=== PATIENT | female | born 1980 | race Caucasian/White ===

== ENCOUNTER 2019-06-22 10:37 | Emergency (ER) | payer OTHER ==
--- NOTE | 2019-06-22 10:53 | ED Physician Documentation ---
History of Present Illness - Stated complaint Stated Complaint: CHEST PAIN - Chief complaint Chief Complaint: Cardiac - History obtained from History obtained from: Patient - Additonal information Additional information: Patient is a 38-year-old female without significant past medical history presenting with 3 days of left-sided chest discomfort that radiates towards her shoulder and arm. Patient denies inciting incident, but notes pain worsens with movement or exercise. Patient does report mild shortness of breath component but no pleuritic chest pain, cough, or fever. Patient denies nausea, vomiting, urinary changes, stool changes. Patient also denies symptoms that are similar to GERD. Patient does believe there is a bit of an anxiety component given her family history of cardiac disease. Patient denies leg swelling or pain, recent travel, hormone use. No other improving or worsening factors noted. Review of Systems Constitutional: denies: Fever Cardiac: reports: Chest pain / pressure Respiratory: reports: Dyspnea. 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 - Present Medications Home Medications: Ambulatory Orders Medication Instructions Recorded Confirmed No Known Home Medications 06/22/19 06/22/19 - Allergies Allergies/Adverse Reactions: Allergies Allergy/AdvReac Type Severity Reaction Status Date / Time codeine AdvReac Nausea Verified 07/08/14 18:25 NSAIDS (Non-Steroidal AdvReac Unknown Verified 06/22/19 10:46 Anti-Inflamma - Social History Does the pt smoke?: Yes Smoking Status: Current every day smoker Does the pt drink ETOH?: No Does the pt have substance abuse?: No PD ED PE NORMAL - Vitals Vital signs reviewed: Yes - General General: Alert and oriented X 3, No acute distress, Well developed/nourished - HEENT HEENT: Atraumatic, Moist mucous membranes - Neck Neck: Supple, no meningeal sign - Cardiac Cardiac: RRR, No murmur, Other (No reproducible pain with palpation) - Respiratory Respiratory: No respiratory distress, Clear bilaterally - Abdomen Abdomen: Soft, Non tender, Non distended - Derm Derm: Normal color, Warm and dry, No rash - Extremities Extremities: No deformity, No tenderness to palpate, No edema, No calf tenderness / cord - Neuro Neuro: Alert and oriented X 3, No motor deficit, No sensory deficit - Psych Psych: Normal mood, Normal affect Results - Vitals Vitals: Vital Signs - 24 hr 06/22/19 10:45 Temperature 36.8 C Heart Rate 79 Respiratory 20 Rate Blood Pressure 142/90 H O2 Saturation 100 Oxygen O2 Source Room air - EKG (time done) 1044 Rate: Rate (enter#) (77) Rhythm: NSR Intervals: Prolonged QT Ischemia: Other (T wave flattening) - Labs Labs: Laboratory Tests 06/22/19 06/22/19 06/22/19 11:20 11:20 11:20 WBC 9.6 RBC 4.71 Hgb 13.6 Hct 41.8 MCV 88.7 MCH 28.9 MCHC 32.5 RDW 13.8 Plt Count 374 MPV 8.9 Neut # (Auto) 7.5 H Lymph # (Auto) 1.7 [place] # (Auto) 0.3 Eos # (Auto) 0.0 Baso # (Auto) 0.0 Absolute Nucleated RBC 0.00 Nucleated RBC % 0.0 Sodium 138 Potassium 3.4 L Chloride 103 Carbon Dioxide 22 Anion Gap 13.0 BUN 8 Creatinine 0.8 Estimated GFR (MDRD) 80 L Glucose 104 H Calcium 9.8 Total Bilirubin 0.9 AST 27 ALT 37 Alkaline Phosphatase 77 Troponin I 0.06 Total Protein 7.9 Albumin 4.4 Globulin 3.5 Albumin/Globulin Ratio 1.3 Lipase 21 L Serum HCG, Qual 06/22/19 11:20 WBC RBC Hgb Hct MCV MCH MCHC RDW Plt Count MPV Neut # (Auto) Lymph # (Auto) [place] # (Auto) Eos # (Auto) Baso # (Auto) Absolute Nucleated RBC Nucleated RBC % Sodium Potassium Chloride Carbon Dioxide Anion Gap BUN Creatinine Estimated GFR (MDRD) Glucose Calcium Total Bilirubin AST ALT Alkaline Phosphatase Troponin I Total Protein Albumin Globulin Albumin/Globulin Ratio Lipase Serum HCG, Qual NEGATIVE PD MEDICAL DECISION MAKING - ED course Complexity details: reviewed results, re-evaluated patient, considered differential, d/w patient ED course: Patient presenting with left-sided chest discomfort that is likely musculoskeletal in nature given worse with movement. Do not have high suspicion for true cardiac disease such as ACS, PR, unstable angina, aneurysm, dissection, but considered. EKG and troponin within normal limits. Given duration of symptoms, do not feel patient requires repeat troponin. Patient can also be ruled out by PERC criteria for PE. Chest x-ray returned without evidence of pneumonia, pulmonary edema, or other complication. Screening lab work otherwise was relatively unremarkable. Discussed use of Toradol for muscular skeletal pain and need to establish primary care physician and referral to cardiology for baseline work-up despite patient being young and healthy, but has significant cardiac history in her family. Feel the patient can discharge home with strict return precautions. Patient voiced understanding and is comfortable with discharge plan. Departure - Departure Disposition: 01 Home, Self Care Clinical Impression: Chest wall pain Condition: Good Instructions: ED Strain Chest Wall Follow-Up: your,doctor [Other] - Within 3 Days Comments: Please continue any home medications as previously instructed. Please contact primary care physician in next 2 to 3 days for follow-up and discussion of referral to cardiology to establish baseline given your family history. May try Tylenol, massage, stretching, and heat application to help with muscle pain. Return to ED sooner if experience worsening symptoms or you have other concerns.
[2019-06-22] MEDS ORDERED: ASPIRIN CHEW 81 MG TABLET PO STA (11:03)
[2019-06-22 11:30] LABS: BASOPHILS % (AUTO) 0.3 %; EOSINOPHILS % (AUTO) 0.4 %; HGB - HEMOGLOBIN 13.6 g/dL (12.0-16.0); LYMPHOCYTES # (AUTO) 1.7 10^3/uL (1.5-3.5); LYMPHOCYTES % (AUTO) 17.3 %; MEAN CORPUSCULAR HEMOGLOBIN 28.9 pg (27.0-31.0); MEAN CORPUSCULAR HGB CONC 32.5 g/dL (32.0-36.0); MEAN CORPUSCULAR VOLUME 88.7 fL (81.0-99.0); MEAN PLATELET VOLUME 8.9 fL (7.9-10.8); MONOCYTES # (AUTO) 0.3 10^3/uL (0.0-1.0); MONOCYTES % (AUTO) 3.3 %; NEUTROPHILS # (AUTO) 7.5 10^3/uL (1.5-6.6); NEUTROPHILS % (AUTO) 78.4 %; PLT - PLATELET COUNT 374 10^3/uL (130-450); RED BLOOD COUNT 4.71 10^6/uL (4.20-5.40); RED CELL DISTRIBUTION WIDTH 13.8 % (12.0-15.0); WHITE BLOOD COUNT 9.6 x10^3/uL (4.8-10.8)
[2019-06-22 11:41] LABS: ALBUMIN 4.4 g/dL (3.2-5.5); ALBUMIN/GLOBULIN RATIO 1.3 (1.0-2.2); BILIRUBIN,TOTAL 0.9 mg/dL (0.2-1.0); CALCIUM 9.8 mg/dL (8.5-10.3); CREATININE 0.8 mg/dL (0.4-1.0); TOTAL PROTEIN 7.9 g/dL (6.7-8.2)
[2019-06-22 11:59] LABS: HCG,QUALITATIVE BLOOD NEGATIVE
[2019-06-22] MEDS ORDERED: KETOROLAC 60 MG/2 ML VIAL IM STA (12:24)
--- NOTE | 2019-06-22 12:28 | XRAY Report ---
Reason: cough Procedure Date: 06/22/2019 Accession Number: [id number] / [id number] Procedure: XR - Chest 2 View X-Ray CPT Code: 04480 FULL RESULT: EXAM: CHEST RADIOGRAPHY EXAM DATE: 06/22/2019 12:01 PM. CLINICAL HISTORY: Cough. COMPARISON: None. TECHNIQUE: 2 views. FINDINGS: Lungs/Pleura: No focal opacities evident. No pleural effusion. No pneumothorax. Normal volumes. Mediastinum: Heart and mediastinal contours are unremarkable. Other: None. IMPRESSION: No acute cardiopulmonary abnormality. RADIA
[2019-06-22] MEDS ORDERED: KETOROLAC 30 MG/ML VIAL IVP STA (12:34)
[2019-06-22 12:52] VITALS: BP 132/82
== END 2019-06-22 12:52 | disposition home or self-care (01) ==
LOC: ED 10:37
DX: R07.89 Other chest pain (principal); F17.200 Nicotine dependence, unspecified, uncomplicated
CPT/HCPCS: 36415; 71046; 80053; 83690; 84484; 84703; 85025; A9270

== ENCOUNTER 2019-06-24 20:36 | Emergency (ER) | payer OTHER ==
[2019-06-24 20:59] LABS: BASOPHILS % (AUTO) 0.2 %; EOSINOPHILS # (AUTO) 0.1 10^3/uL (0.0-0.7); EOSINOPHILS % (AUTO) 1.6 %; HGB - HEMOGLOBIN 13.4 g/dL (12.0-16.0); LYMPHOCYTES # (AUTO) 3.6 10^3/uL (1.5-3.5); LYMPHOCYTES % (AUTO) 42.8 %; MEAN CORPUSCULAR HEMOGLOBIN 29.5 pg (27.0-31.0); MEAN CORPUSCULAR HGB CONC 33.1 g/dL (32.0-36.0); MEAN PLATELET VOLUME 8.5 fL (7.9-10.8); MONOCYTES # (AUTO) 0.5 10^3/uL (0.0-1.0); MONOCYTES % (AUTO) 6.1 %; NEUTROPHILS # (AUTO) 4.1 10^3/uL (1.5-6.6); NEUTROPHILS % (AUTO) 49.1 %; PLT - PLATELET COUNT 351 10^3/uL (130-450); RED BLOOD COUNT 4.55 10^6/uL (4.20-5.40); RED CELL DISTRIBUTION WIDTH 14.1 % (12.0-15.0); WHITE BLOOD COUNT 8.3 x10^3/uL (4.8-10.8)
[2019-06-24 21:13] LABS: ALBUMIN/GLOBULIN RATIO 1.3 (1.0-2.2); BILIRUBIN,TOTAL 0.6 mg/dL (0.2-1.0); CALCIUM 9.1 mg/dL (8.5-10.3); CREATININE 1.4 mg/dL (0.4-1.0); TOTAL PROTEIN 7.2 g/dL (6.7-8.2)
--- NOTE | 2019-06-24 21:25 | XRAY Report ---
Reason: Chest Pain Procedure Date: 06/24/2019 Accession Number: [id number] / [id number] Procedure: XR - Chest 1 View X-Ray CPT Code: 02640 FULL RESULT: EXAM: CHEST RADIOGRAPHY EXAM DATE: 06/24/2019 09:02 PM. CLINICAL HISTORY: Chest pain. COMPARISON: CHEST 2 VIEW 06/22/2019 11:51 AM. TECHNIQUE: 1 view. FINDINGS: Lungs/Pleura: There is a subtle right perihilar opacity new since the previous exam. The left lung remains clear. No pleural effusion or pneumothorax. Mediastinum: Within exam limitations, the cardiomediastinal contour is normal. Other: None. IMPRESSION: Subtle right perihilar opacity suspicious for developing airspace infiltrate. RADIA
--- NOTE | 2019-06-25 00:12 | ED Physician Documentation ---
PD HPI CHEST PAIN - Stated complaint Stated Complaint: CHEST PX - Chief complaint Chief Complaint: Cardiac - History obtained from History obtained from: Patient - History of Present Illness Timing - onset: How many days ago (5) Timing - duration: Days Timing - details: Gradual onset, Still present, Constant Pain level now: 5 Quality: Pain Location: Substernal Radiation: Other (no radiation) Improved by: Nothing Worsened by: Other (no exacerbating factors) Associated symptoms: No: Shortness of air, Diaphoresis, Nausea, Vomiting, Feeling faint / dizzy, General Weakness, Palpitations, Cough Similar symptoms before: No diagnosis Recently seen: Emergency Dept (2 days ago) - Additional information Additional information: c/o 5 days chest pain, T+R from this ED 2 days ago, returns due to pain way worse (per patient). patient says she cannot get appointment with PMD until next month. Review of Systems Constitutional: reports: Reviewed and negative Cardiac: reports: Chest pain / pressure. 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 - Present Medications Home Medications: Ambulatory Orders Medication Instructions Recorded Confirmed Azithromycin [Zithromax] 250 mg PO DAILY #4 tablet 06/25/19 Oxycodone HCl/Acetaminophen 1 - 2 each PO Q6H PRN #14 tablet 06/25/19 [Percocet 5-325 mg Tablet] - Allergies Allergies/Adverse Reactions: Allergies Allergy/AdvReac Type Severity Reaction Status Date / Time codeine AdvReac Nausea Verified 06/25/19 02:24 NSAIDS (Non-Steroidal AdvReac Unknown Verified 06/25/19 02:24 Anti-Inflamma - Living Situation Living Arrangement: reports: At home - Social History Does the pt smoke?: Yes Smoking Status: Current every day smoker Does the pt drink ETOH?: No Does the pt have substance abuse?: No - Family History Family history: reports: Other (father 30 [place], uncle 3v CABG in his 30s then due to CAD) PD ED PE NORMAL - Vitals Vital signs reviewed: Yes - General General: Alert and oriented X 3, No acute distress, Well developed/nourished - Cardiac Cardiac: RRR, No murmur, No gallop, No rub - Respiratory Respiratory: No respiratory distress, Clear bilaterally - Abdomen Abdomen: Soft, Non tender - Derm Derm: Normal color, Warm and dry - Extremities Extremities: No edema - Neuro Neuro: Alert and oriented X 3 Results - Vitals Vitals: Oxygen O2 Source Room air - EKG (time done) No standard instances Rate: Rate (enter#) (92) Rhythm: NSR [place]: Normal Intervals: Normal [place] QRS: Normal Ischemia: Normal ST segments, Other (flat/inverted T V1-V5) - Labs Labs: Laboratory Tests 06/24/19 06/24/19 06/25/19 20:54 20:54 00:50 WBC 8.3 RBC 4.55 Hgb 13.4 Hct 40.5 MCV 89.0 MCH 29.5 MCHC 33.1 RDW 14.1 Plt Count 351 MPV 8.5 Neut # (Auto) 4.1 Lymph # (Auto) 3.6 H [place] # (Auto) 0.5 Eos # (Auto) 0.1 Baso # (Auto) 0.0 Absolute Nucleated RBC 0.00 Nucleated RBC % 0.0 D-Dimer < 200.0 L Sodium 144 Potassium 3.6 Chloride 105 Carbon Dioxide 26 Anion Gap 13.0 BUN 12 Creatinine 1.4 H Estimated GFR (MDRD) 42 L Glucose 98 Calcium 9.1 Total Bilirubin 0.6 AST 19 ALT 28 Alkaline Phosphatase 67 Troponin I High Sens Total Protein 7.2 Albumin 4.0 Globulin 3.2 Albumin/Globulin Ratio 1.3 Lipase 37 06/25/19 00:50 WBC RBC Hgb Hct MCV MCH MCHC RDW Plt Count MPV Neut # (Auto) Lymph # (Auto) [place] # (Auto) Eos # (Auto) Baso # (Auto) Absolute Nucleated RBC Nucleated RBC % D-Dimer Sodium Potassium Chloride Carbon Dioxide Anion Gap BUN Creatinine Estimated GFR (MDRD) Glucose Calcium Total Bilirubin AST ALT Alkaline Phosphatase Troponin I High Sens 65.1 H* Total Protein Albumin Globulin Albumin/Globulin Ratio Lipase - Rads (name of study) chest xray Radiology: Prelim report reviewed, See rad report PD MEDICAL DECISION MAKING - ED course Complexity details: reviewed old records, reviewed results, re-evaluated patient, considered differential, d/w patient ED course: in discussing results of tests with patient, she rapidly became upset that no significant abnormalities were found. she indicates concern regarding her symptoms in light of significant family cardiac history. I explained that her concern is appropriate and I recommended a 2-hour repeat of her cardiac blood test (high sensitivity troponin); this only seemed to upset her further: she says she does not want to stay in ED that long and insists on leaving AMA. Departure - Departure Disposition: 07 Against Medical Advice Clinical Impression: Chest pain Qualifiers: Chest pain type: unspecified Qualified Code(s): R07.9 - Chest pain, unspecified Condition: Stable Discharge Date/Time: 06/25/19 01:56
[2019-06-25 00:58] VITALS: BP 113/51
== END 2019-06-25 01:56 | disposition left against medical advice (07) ==
LOC: ED 20:36
DX: R07.89 Other chest pain (principal); Z82.41 Family history of sudden cardiac death; Z82.49 Family history of ischemic heart disease and other diseases of the circulatory system; F17.200 Nicotine dependence, unspecified, uncomplicated
CPT/HCPCS: 36415; 71045; 80053; 83690; 84484; 85025; 85379; 93005; 99283; 99284

== ENCOUNTER 2019-06-25 02:12 | Emergency (ER) | payer OTHER ==
--- NOTE | 2019-06-25 03:33 | ED Physician Documentation ---
PD HPI CHEST PAIN - Stated complaint Stated Complaint: CP - Chief complaint Chief Complaint: Cardiac - History obtained from History obtained from: Patient - History of Present Illness Timing - onset: How many days ago (5) Timing - duration: Days Timing - details: Gradual onset, Still present Pain level now: 4 Quality: Pain Location: Substernal Improved by: Nothing Worsened by: Other (no exacerbating factors) Associated symptoms: No: Shortness of air, Diaphoresis, Nausea, Vomiting, Feeling faint / dizzy, General Weakness, Palpitations, Cough Similar symptoms before: No diagnosis Recently seen: Emergency Dept - Additional information Additional information: patient left this ED AMA a little over 1 hour ago while undergoing evaluation for chest pain. 2 hour repeat high sensitivity troponin was recommended and patient did not want to stay in ED that long. she returns at urging of s.o. to complete the evaluation as recommended. patient also was T+R 2 days ago from this ED for same symptoms Review of Systems Constitutional: reports: Reviewed and negative Cardiac: reports: Chest pain / pressure. 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 - Present Medications Home Medications: Ambulatory Orders Medication Instructions Recorded Confirmed Azithromycin [Zithromax] 250 mg PO DAILY #4 tablet 06/25/19 Oxycodone HCl/Acetaminophen 1 - 2 each PO Q6H PRN #14 tablet 06/25/19 [Percocet 5-325 mg Tablet] - Allergies Allergies/Adverse Reactions: Allergies Allergy/AdvReac Type Severity Reaction Status Date / Time codeine AdvReac Nausea Verified 06/25/19 02:24 NSAIDS (Non-Steroidal AdvReac Unknown Verified 06/25/19 02:24 Anti-Inflamma - Social History Does the pt smoke?: No Smoking Status: Never smoker Does the pt drink ETOH?: No Does the pt have substance abuse?: No - Immunizations Immunizations are current?: No - POLST Patient has POLST: No PD ED PE NORMAL - Vitals Vital signs reviewed: Yes - General General: Alert and oriented X 3, No acute distress, Well developed/nourished - Cardiac Cardiac: RRR, No murmur, No gallop, No rub - Respiratory Respiratory: No respiratory distress, Clear bilaterally - Abdomen Abdomen: Soft, Non tender - Extremities Extremities: No edema Results - Vitals Vitals: Oxygen O2 Source Room air - Labs Labs: Laboratory Tests 06/25/19 03:11 Troponin I High Sens 81.5 H* PD MEDICAL DECISION MAKING - ED course Complexity details: reviewed old records, reviewed results, re-evaluated patient, considered differential, d/w patient ED course: patient is polite and apologetic regarding previous encounter. her frustration is understandable in light of length of stay, and she is appropriately concerned with nondiagnostic results in light of her family cardiac history. I discussed this case and lab results with Dr. Garsia (tower [employer] traffic [employer] specialist cardiology at [facility]). we are in agreement that the elevated high sensitivity troponin and the 2 hour delta are not significant and thus recommend outpatient stress test. I discussed this with patient and she expresses understanding of, and agreement with, this plan Departure - Departure Disposition: 01 Home, Self Care Clinical Impression: Chest pain Condition: Good Instructions: ED Chest Pain Atypical Unkn Cause Prescriptions: Azithromycin [Zithromax] 250 mg PO DAILY #4 tablet Oxycodone HCl/Acetaminophen [Percocet 5-325 mg Tablet] 1 - 2 each PO Q6H PRN #14 tablet PRN Reason: pain Discharge Date/Time: 06/25/19 04:45
[2019-06-25] MEDS ORDERED: oxyCODONE/ACET 5/325 Prepack 4 PO STA (04:33)
[2019-06-25] MEDS ORDERED: AZITHROMYCIN 250 MG TABLET PO STA (04:33)
[2019-06-25 04:40] VITALS: BP 149/91
== END 2019-06-25 04:45 | disposition home or self-care (01) ==
LOC: ED 02:12
DX: R07.89 Other chest pain (principal); Z82.41 Family history of sudden cardiac death; Z82.49 Family history of ischemic heart disease and other diseases of the circulatory system; F17.200 Nicotine dependence, unspecified, uncomplicated
CPT/HCPCS: 36415; 71045; 80053; 83690; 84484; 85025; 85379; 93005; 99283; 99284; A9270

== ENCOUNTER 2023-02-26 15:55 | Outpatient (CLI) | payer OTHER | END 2023-02-26 15:56 | disposition short-term general hospital (02) | LOC: EMS 15:55 | DX: R07.9 Chest pain, unspecified (principal); R00.8 Other abnormalities of heart beat; R13.10 Dysphagia, unspecified; R20.2 Paresthesia of skin; F41.9 Anxiety disorder, unspecified | CPT/HCPCS: A0425; A0427 ==

== ENCOUNTER 2023-10-11 20:17 | Outpatient (CLI) | payer OTHER | END 2023-10-11 23:59 | disposition short-term general hospital (02) | LOC: EMS 20:17 | DX: R07.9 Chest pain, unspecified (principal); M25.512 Pain in left shoulder; M54.2 Cervicalgia; R11.0 Nausea | CPT/HCPCS: A0425; A0427 ==